=== PATIENT | female | born 1995 | race Caucasian/White ===

== ENCOUNTER 2022-04-07 16:45 | Emergency (ER) | payer OTHER, SELFPAY ==
[2022-04-07 17:04] VITALS: BP 132/69; PULSE 100; RESP 18; TEMP 37.2; O2SAT 100
--- NOTE | 2022-04-07 17:11 | ED.URI ---
HPI - URI/Sore Throat General Chief Complaint: Upper Respiratory Infection Stated Complaint: congestion,headache Time Seen by Provider: 04/07/22 17:11 Source: patient, RN notes reviewed and old records reviewed Mode of arrival: ambulatory Limitations: no limitations History of Present Illness HPI Narrative: 26-year-old female presents to the [facility] with complaints of congestion and headache For the last 32 days. Patient reports that she was evaluated at another [facility] urgent care and was told it was due to stress. Has been going to group therapy because her is deployed and she can not handle stress. She states that she can not be sick anymore. Reports taking a different [id number] medications with no relief. Has not seen her primary care provider since arm symptoms started. Related Data Home Medications Medication Instructions Recorded Confirmed albuterol 90 mcg/actuation aerosol 1 mcg inhalation PRN PRN Shortness 04/07/22 04/07/22 inhaler Of Breath dextroamphetamine-amphetamine ER 30 mg PO DAILY 04/07/22 04/07/22 30 mg 24hr capsule,extend release duloxetine 60 mg capsule,delayed 30 mg PO DAILY 04/07/22 04/07/22 release ergocalciferol (vitamin D2) 1,250 1 unit WEEKLY 04/07/22 04/07/22 mcg (50,000 unit) capsule famotidine 10 mg/mL intravenous 10 mg DAILY 04/07/22 04/07/22 solution ferrous sulfate 325 mg (65 mg 325 mg DAILY 04/07/22 04/07/22 iron) tablet (FeroSul) loperamide 2 mg capsule 2 mg DAILY 04/07/22 04/07/22 lorazepam 0.5 mg tablet 0.5 mg PRN PRN Anxiety 04/07/22 04/07/22 ondansetron HCl 4 mg tablet 4 mg PRN PRN Nausea 04/07/22 04/07/22 pregabalin 75 mg capsule 225 mg BID 04/07/22 04/07/22 tizanidine 2 mg tablet 2 mg PRN PRN Muscle Spasm 04/07/22 04/07/22 tramadol 50 mg tablet 50 mg PRN PRN Pain 04/07/22 04/07/22 zonisamide 100 mg capsule 100 mg PO DAILY 04/07/22 04/07/22 Allergies Allergy/AdvReac Type Severity Reaction Status Date / Time No Known Allergies Allergy Verified 04/07/22 17:20 Review of Systems Review of Systems: All systems reviewed & are unremarkable except as noted in HPI and below Constitutional: Constitutional: Reports as per HPI, Reports no additional constitutional complaints, Reports body ache(s) and Reports fatigue Eyes: Eyes: Reports no additional eye complaints ENT: Reports as per HPI and Reports nasal congestion Cardiovascular: Cardiovascular: Reports no additional cardiovascular complaints, Denies chest pain and Denies dyspnea Respiratory: Respiratory: Reports no additional respiratory complaints, Denies chest congestion, Denies cough and Denies dyspnea Gastrointestinal: Gastrointestinal: Reports no additional gastrointestinal complaints, Denies abdominal pain, Denies nausea and Denies vomiting Musculoskeletal: Musculoskeletal: Reports no additional musculoskeletal complaints Integumentary/Breasts: Skin/Breast: Reports system reviewed and no additional complaints, except as docu Neurologic: Reports system reviewed and no additional complaints, except as documented Psychiatric: Psychiatric: Reports no additional psychiatric complaints Allergic/Immunologic: Allergic/Immunologic: Reports no additional allergic/immunologic complaints PMFSH Past Medical History Medical History Adjustment disorder with anxious mood Anxiety and depression Fibromyalgia IBS (irritable bowel syndrome) Comments At the time of my signature, I reviewed and agree with the nursing past medical, surgical, social, and family history. There is no relevant family history pertinent to the patient complaint. Exam Const: General: cooperative, healthy appearing, comfortable, no acute distress, well developed, alert and well nourished Nutritional Appearance: well nourished and obese Orientation/consciousness: patient oriented x3 Limitations: no limitations HENMT: Head: normal to inspection Ears: hearing breanna
== END 2022-04-07 17:45 | disposition home or self-care (01) ==
PROVIDERS: Emergency Provider Nurse Practitioner
DX: H66.92 Otitis media, unspecified, left ear (principal); M79.7 Fibromyalgia; F41.9 Anxiety disorder, unspecified
CPT/HCPCS: 99203; G0463

== ENCOUNTER 2023-03-24 12:37 | Emergency (ER) | payer OTHER, SELFPAY ==
[2023-03-24 12:47] VITALS: BP 114/76; PULSE 89; RESP 16; TEMP 37.2; O2SAT 100
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
== END 2023-03-24 14:14 | disposition short-term general hospital (02) ==
PROVIDERS: Emergency Provider Nurse Practitioner
DX: R11.0 Nausea (principal); R51.9 Headache, unspecified; Z77.29 Contact with and (suspected) exposure to other hazardous substances; M79.7 Fibromyalgia; F41.9 Anxiety disorder, unspecified; F32.A Depression, unspecified
CPT/HCPCS: 99212; G0463

== ENCOUNTER 2023-03-24 14:48 | Emergency (ER) | payer OTHER, SELFPAY ==
[2023-03-24 14:50] VITALS: BP 113/72; PULSE 103; RESP 16; TEMP 36.6; O2SAT 100
[2023-03-24 17:01] LABS: Alveolar/Arterial O2 Gradient 22.7 mmHg; Base Excess ABG -1.9 mEq/l (+/-2.0); Carboxyhemoglobin 0.9 % THb (0-2.0); Fractional Inspired Oxygen 21 %; HCO3 ABG 20.6 mEq/l (22.0-26.0); Methemoglobin ABG 0.2 %THb (0-1.5); Oxygen Content ABG 19.7 %vol (16.0-22.0); Oxygen Saturation ABG 97.6 % (95.0-100.0); Oxyhemoglobin 96.1 % THb (90.0-100.0); PCO2 ABG 29.1 mmHg (35.0-45.0); PO2 ABG 92.2 mmHg (80.0-100.0); PO2 FiO2 Ratio Arterial Blood 4.39 %; Reduced Hemoglobin 2.8 %THb (0-5.0); Total Hemoglobin 14.5 g/dL (12.0-18.0); pH ABG 7.467 (7.350-7.450)
[2023-03-24 17:03] LABS: Device ROOM AIR; Modified Allen's Test Pass; Site Drawn RIGHT RADIAL
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
== END 2023-03-24 18:06 | disposition home or self-care (01) ==
PROVIDERS: Emergency Provider Emergency Medicine
DX: R51.9 Headache, unspecified (principal); R52 Pain, unspecified; K58.9 Irritable bowel syndrome, unspecified; M79.7 Fibromyalgia; F32.A Depression, unspecified; F43.22 Adjustment disorder with anxiety
CPT/HCPCS: 36600; 82375; 82805; 83050; 99283